=== PATIENT | female | born 1990 | race African-American/Black ===

== ENCOUNTER 2018-03-12 14:45 | Inpatient (IN) | payer OTHER ==
[2018-03-12] MEDS ORDERED: DEXTROSE 5%-LACTATED RINGERS 500 ML IV SCH ×2 (15:20→16:20)
[2018-03-12 18:17] LABS: URINE APPEARANCE CLEAR; URINE BILIRUBIN NEGATIVE (<2.0 mg/dL); URINE COLOR YELLOW; URINE GLUCOSE (UA) 3+ (NEGATIVE); URINE KETONE NEGATIVE (NEGATIVE); URINE PROTEIN NEGATIVE (NEGATIVE)
[2018-03-12 18:18] LABS: EPI CELLS RARE /HPF (FEW); URINE LEUK ESTERASE NEGATIVE (NEGATIVE); URINE MUCUS RARE; URINE NITRITE NEGATIVE (NEGATIVE)
[2018-03-12] MEDS: DEXTROSE 5%-LACTATED RINGERS 1,000 ML IV SCH (21:00)
[2018-03-12] MEDS ORDERED: PROMETHAZINE HCL 25 MG/1 ML VIAL IVPUSH ONE (21:15)
[2018-03-12] MEDS ORDERED: BUTORPHANOL TARTRATE 1 MG/ML VIAL IVPB ONE (21:15)
--- NOTE | 2018-03-12 21:16 | HP ---
Past Medical History - Admission Chief Complaint: abdominal pain/cramping History of Present Illness: 27 y/o with SIUP at 40.2 weeks here with complaints of abdominal pain. Pt also states she has had loose stools for 2 days, has been having 5 bowel movements/day. Denies LOF/VB. +FM. H/o prior delivery for failed labor induction (induced for post dates) in [place]. uncomplicated. Desires TOLAC. 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 Weeks Gestation by Dates: 40.2 ...EDC by Dates: 03/10/18 Heme/Onc: No: Anemia Infectious Disease: No: HIV, STD's Psych: No: Anxiety, Bipolar, Depression - Past Surgical History Past Surgical History: Yes: Hx Myomectomy: No Hx Transabdominal Cerclage: No - Alcohol/Substance Use History of Substance Use: reports: None - Social History ADL: Independent History of Recent Travel: No Home Medications - Allergies Allergies/Adverse Reactions: Allergies Allergy/AdvReac Type Severity Reaction Status Date / Time No Known Allergies Allergy Verified 03/12/18 15:53 - Home Medications Home Medications: Ambulatory Orders Tablet 1 tablet PO DAILY 03/12/18 Review of Systems - Review of Systems Constitutional: reports: No Symptoms Eyes: reports: No Symptoms HENT: reports: No Symptoms Neck: reports: No Symptoms Cardiovascular: reports: No Symptoms Respiratory: reports: No Symptoms Gastrointestinal: reports: Abdominal Pain, Other (loose stools X 5 today). denies: Nausea, Vomiting Genitourinary: reports: Other Breasts: reports: No Symptoms Reported Musculoskeletal: reports: No Symptoms Integumentary: reports: No Symptoms Neurological: reports: No Symptoms Endocrine: reports: No Symptoms Hematology/Lymphatic: reports: No Symptoms Psychiatric: reports: No Symptoms Physical Exam - Maternity Vital Signs: Vital Signs Temperature 97.8 F 03/12/18 18:00 Pulse Rate 85 05/28/18 20:00 Respiratory Rate 20 03/12/18 20:00 Blood Pressure 135/65 03/12/18 20:00 O2 Sat by Pulse Oximetry (%) Constitutional: Yes: Well Nourished, Mild Distress Eyes: Yes: Conjunctiva Clear, EOM Intact HENT: Yes: Atraumatic, Normocephalic Neck: Yes: Supple Lungs: Clear to auscultation - Abdominal Exam/OB Fundal Height: 40 Number of Fetuses: Single Presentation: Vertex Contractions: Yes Regularity: Regular Intensity: Mild/Mod Category: I Accelerations: Uniform Decelerations: None - Vaginal Exam/OB Dilatation (cm): 1 Effacement (%): 50 Amniotic Membrane Status: Intact Presentation: Vertex/Position Station: -2 - Physical Exam Psychiatric: Yes: Alert, Oriented Hemorrhage Risk Assessment - Risk Factors Medium Risk Factors: Yes: Prior , uterine surgery,or multiple laparotomies High Risk Factors: Yes: None Risk Score: 1 Risk Level: Medium Risk Problem List - Problems (1) Term Code(s): Z34.80 - ENCOUNTER FOR SUPRVSN OF NORMAL , UNSP TRIMESTER (2) Desires (vaginal after ) trial Code(s): O34.219 - MATERNAL CARE FOR UNSP TYPE SCAR FROM PREVIOUS DEL Assessment/Plan 27 y/o with SIUP at 40.2 weeks gestation here in early labor, for TOLAC. FHTS cat - for continuous monitoring expectant management pain management/analgesia prn GBS negative Disussed R/B/A to TOLAC with patient including but not limited to risk of uterine rupture, need for emergent delivery, possible risk of bleeding/ hysterectomy etc, pt aware and consents for TOLAC at this time continue current care
[2018-03-12 21:48] VITALS: BMI 34.0
[2018-03-12 23:16] LABS: BASO % 0.5 % (0-2.0); EOS % 0.6 % (0-4.5); HEMOGLOBIN 13.2 GM/dL (10.7-15.3); LYMPH % 20.8 % (8-40); MCH 28.9 pg (25.7-33.7); MEAN CELL VOLUME 87.6 fl (80-96); MONO % 12.5 % (3.8-10.2); NEUT % 65.6 % (42.8-82.8); PLATELET COUNT 140 K/MM3 (134-434); RBC 4.57 M/mm3 (3.60-5.2); RDW 14.2 % (11.6-15.6); WHITE BLOOD COUNT 7.7 K/mm3 (4.0-10.0)
[2018-03-12 23:29] LABS: PROTHROMBIN TIME (PATIENT) 11.3 SEC (9.7-13.0)
[2018-03-12 23:31] LABS: ACTIVATED PTT 27.7 SECONDS (26.9-34.4)
[2018-03-12 23:35] LABS: ANION GAP 10 (8-16); BLOOD UREA NITROGEN 6 mg/dL (7-18); CALCIUM 8.9 mg/dL (8.5-10.1); CHLORIDE 106 mmol/L (98-107); CO2 24 mmol/L (21-32); CREATININE 0.5 mg/dL (0.55-1.02); GLUCOSE,RANDOM 110 mg/dL (74-106); POTASSIUM 3.9 mmol/L (3.5-5.1); SODIUM 140 mmol/L (136-145)
[2018-03-13] MEDS: DEXTROSE 5%-LACTATED RINGERS 1,000 ML IV SCH (01:28)
--- NOTE | 2018-03-13 04:08 | PN ---
Ante-Partal Exam - Subjective Subjective: Pt asking for pain medication. FHR difficult to monitor 2/2 patient motion. Vital Signs: Vital Signs Temperature 98.2 F 03/13/18 02:00 Pulse Rate 70 03/13/18 02:00 Respiratory Rate 20 03/13/18 02:00 Blood Pressure 131/78 03/13/18 02:00 O2 Sat by Pulse Oximetry (%) Bleeding: No Headache: No Visual changes: No Right upper quadrant pain: No Pain (scale 1-10): 9 - Contractions Contractions: Yes Regularity: Regular Intensity: Moderate Monitor Mode: External - Exam during Labor Heart Rate: 150 Variability: Moderate Heart Rate Location: [facility] Category: I Monitor Accelerations: Present Exam: Vaginal Dilatation (cm): 3 Effacement (%): 80 Amniotic Membrane Status: Ruptured (AROM for meconium stained fluid this examination) Amniotic Fluid: Meconium Stained Meconium Staining: Moderate Presentation: Vertex Station: -2 - Intrapartum Hemorrhage Risk Medium Risk Factors: None High Risk Factors: None Risk Score: 0 Risk Level: Low Risk - Assessment/Plan Assessment/Plan: 27 y/o with SIUP at 40.3 weeks, TOLAC - FHTs appear category 1, however have been difficult to monitor, internal lead placed at this examination - will do continuous monitoring - for analgesia prn - GBS negative - continue expectant management
[2018-03-13] MEDS ORDERED: FENTANYL/BUPIVACAINE/NS/PF - PCEA - 50 ML DISP.SYRIN EP ONE ×2 (04:21→09:36)
[2018-03-13] MEDS ORDERED: NALOXONE HCL 0.4 MG/ML VIAL IVPUSH PRN (04:24)
[2018-03-13] MEDS ORDERED: BUPIVACAINE HCL/PF 0.25% (2.5MG/ML) 10 ML VIAL ONE (04:26)
[2018-03-13] MEDS ORDERED: LIDO 2%/EPI 1:200000 PRESRVFRE (20 ML SDVIAL) ONE ×2 (04:26→10:34)
[2018-03-13] MEDS ORDERED: FENTANYL/BUPIVACAINE/NS/PF - PCEA - 50 ML DISP.SYRIN EP SCH (04:30)
[2018-03-13] MEDS ORDERED: ELECTROLYTE-148 SOLN 500 ML IV ONE (04:45)
[2018-03-13] MEDS ORDERED: ELECTROLYTE-148 SOLN 1,000 ML IV SCH (05:45)
--- NOTE | 2018-03-13 07:36 | PN ---
Ante-Partal Exam - Subjective Subjective: Pt comfortable with epidural. Vital Signs: Vital Signs Temperature 98.3 F 03/13/18 06:20 Pulse Rate 84 03/13/18 07:15 Respiratory Rate 18 03/13/18 07:15 Blood Pressure 132/67 03/13/18 07:15 O2 Sat by Pulse Oximetry (%) 98 03/13/18 07:15 Bleeding: No Headache: No Visual changes: No Right upper quadrant pain: No - Contractions Contractions: Yes Regularity: Regular - Exam during Labor Heart Rate: 145 Variability: Moderate Category: I Monitor Accelerations: Present Monitor Decelerations: Variable (one isolated variable deceleration) Amniotic Membrane Status: Ruptured Presentation: Vertex - Assessment/Plan Assessment/Plan: 27 y/o with SIUP at 40.3 weeks, labor, for TOLAC - AFVSS - FHTs cat 1, one isolated variable at this time, pt position changed, will continue to monitor - GBS negative - continue expectant management
--- NOTE | 2018-03-13 09:59 | PN ---
Ante-Partal Exam - Subjective Subjective: Pt with TOLAC + meconium Vital Signs: Vital Signs Temperature 98.3 F 03/13/18 06:20 Pulse Rate 92 H 03/13/18 09:30 Respiratory Rate 17 03/13/18 09:30 Blood Pressure 120/63 03/13/18 09:30 O2 Sat by Pulse Oximetry (%) 99 03/13/18 09:30 - Contractions Contractions: Yes Regularity: Irregular - Exam during Labor Heart Rate: 140 Category: II Monitor Accelerations: Present Monitor Decelerations: Variable Exam: Vaginal Dilatation (cm): 3 Effacement (%): 80 Amniotic Membrane Status: Ruptured Amniotic Fluid: Meconium Stained Presentation: Vertex Station: -1 - Assessment/Plan Assessment/Plan: previous CS TOLAC Cat 2 - advised needs CS pt refused Plan continue present management until decides wants cs will obtain refusal consent
[2018-03-13] MEDS ORDERED: OXYTOCIN 20 UNITS in 0.9% NS 40 UNIT/2,000 ML INFUS.BAG IV ONE (10:19)
[2018-03-13] MEDS ORDERED: DEXAMETHASONE SOD PHOSPHATE 4 MG/1 ML VIAL ONE (10:29)
[2018-03-13] MEDS ORDERED: ceFAZolin SODIUM 1 GM VIAL ONE (10:29)
[2018-03-13] MEDS ORDERED: morphine SULFATE/Preservative Free 0.5 MG/ML (1cc Syringe) ONE (10:30)
[2018-03-13] MEDS ORDERED: PHENYLEPHRINE HCL 10 MG/1 ML SINGLE DOSE VIAL ONE (10:34)
[2018-03-13] MEDS ORDERED: IBUPROFEN 800 MG/8 ML IJ IVPB PRN (10:43)
[2018-03-13] MEDS ORDERED: METHYLERGONOVINE MALEATE 0.2 MG/1 ML AMP IM PRN (10:43)
--- NOTE | 2018-03-13 10:43 | OP ---
Operative Note - Note: Operative Date: 03/13/18 Pre-Operative Diagnosis: Previous Section Operation: Low transverse Section Findings: Live female infant delivered in OT position Post-Operative Diagnosis: Same as Pre-op Surgeon: Joanne Hernandez Driver Guard: Hayden Mauro Anesthesiologist/PATTERN CHART WRITER: Isabella Turner Anesthesia: Epidural Estimated Blood Loss (mls): 600 Operative Report Dictated: Yes
--- NOTE | 2018-03-13 11:44 | SURG ---
Surgery Process Development Manager Note Process Development Manager: Hayden Mauro PA-C Date of Service: 03/13/18 Diagnosis: Previous Section Procedure: Low transverse Section I was present for the entirety of the operative procedure. For further detail, please refer to operative report. Visit type - Case Type Case Type: Scheduled - New patient This patient is new to me today: Yes Date on this admission: 03/13/18
[2018-03-13 11:45] LABS: ARTERIAL BLD GAS O2 SATURATION 28.1 % (90-98.9); ARTERIAL BLOOD GAS BASE EXCESS -1.9 meq/l (-2-2); ARTERIAL BLOOD GAS PCO2 51.7 mmHg (35-45); ARTERIAL BLOOD GAS PO2 18.2 mmHg (80-100)
[2018-03-13 11:51] LABS: VENOUS PH 7.34 (7.32-7.42)
[2018-03-13 11:52] LABS: VENOUS PO2 27.2 mmHg (28-48)
--- NOTE | 2018-03-13 11:58 | OP ---
DATE OF OPERATION: 03/13/2018 PREOPERATIVE DIAGNOSIS: Previous section and failed vaginal after section. OPERATION: Low transverse section. POSTOPERATIVE DIAGNOSIS: Live female infant. SURGEON: Mis Hernandez MD FAMILY COURT REGISTRAR: CARLEEN Moss; MD unavailable. ANESTHESIOLOGIST: Isabella Turner MD ANESTHESIA: Epidural. ESTIMATED BLOOD LOSS: 600 mL FINDINGS: Live female infant delivered in OT position. Normal tubes and ovaries. PROCEDURE: Patient was taken to the operating room, placed in supine position, prepped and draped in the usual sterile fashion. A Pfannenstiel skin incision scar was removed using a scalpel. Cautery was then used to go through layers of abdominal wall to the level of the fascia. Fascia was cut in the midline, and cautery was then used to open the fascia in the following fashion. Naomi was then used to bluntly and sharply dissect the rectus muscle off the fascia. Peritoneal cavity was then entered and carried upward and downward. Bladder retractor was then placed. Scalpel was then used to make a low transverse uterine incision. Incision was carried upward using bandage scissors. A live female was delivered in OT position. Nose and mouth suction performed. Shoulders were delivered without difficulty. Cord was clamped and cut. Meconium noted. Cord blood obtained. Cord pH obtained. was handed to bank sales and service manager. Placenta was manually extracted from the uterus. Uterus was exteriorized and cleaned with clean lap pads. Uterine incision was then closed using 0 Biosyn suture, first layer of continuous 0 locking; second layer imbricating the first layer. Hemostasis was achieved. Uterus interiorized. Tubes and ovaries were noted to be normal. Peritoneal sweep done. Peritoneal cavity was then closed using 0 Biosyn suture. Fascia was then closed using 0 Vicryl suture in 2 parts. Subcutaneous was closed using 3-0 Vicryl suture, and the skin was then closed using 3-0 Vicryl in subcuticular fashion. Wound was washed and dressed. Patient had tolerated the procedure well. ESTIMATED BLOOD LOSS: 600 mL MIS HERNANDEZ M.D. GAGAN/[id number] MTDD
[2018-03-13] MEDS ORDERED: OXYTOCIN 20 UNITS in 0.9% NS 20 UNIT/1,000 ML INFUS.BAG IV ONE (13:18)
[2018-03-13] MEDS: OXYTOCIN 20 UNITS in 0.9% NS 20 UNIT/1,000 ML INFUS.BAG IV SCH ×2 (13:30→22:31)
[2018-03-13] MEDS ORDERED: TUBERCULIN PPD 5 TU/0.1ML SYRINGE (IN PATIENT USE ONLY) ID ONE (15:00)
[2018-03-14] MEDS: ACETAMINOPHEN 325 MG TABLET (FP) PO PRN ×2 (06:27→19:48)
[2018-03-14] MEDS: SIMETHICONE 80 MG TAB.CHEW (FP) PO PRN ×2 (06:27→19:48)
[2018-03-14] MEDS: IBUPROFEN 600 MG TABLET (FP) PO PRN ×2 (06:29→19:48)
--- NOTE | 2018-03-14 06:59 | PN ---
Progress Note (SOAP) - Subjective Chief Complaint: Pt doing well - Current Medications Current Medications: Active Medications Acetaminophen (Tylenol -) 650 mg PO Q4H PRN PRN Reason: PAIN LEVEL 1-5 Last Admin: 03/14/18 06:27 Dose: 650 mg Bisacodyl (Dulcolax Suppository -) 10 mg RC PRN PRN PRN Reason: CONSTIPATION Diphenhydramine HCl (Benadryl Injection -) 25 mg IVPUSH Q4H PRN PRN Reason: FOR ITCHING Last Admin: 03/14/18 01:32 Dose: 25 mg Diphtheria/Tetanus/Acell Pertussis (Boostrix -) 0.5 ml IM .ONCE ONE Stop: 03/14/18 10:01 Fentanyl/Bupivacaine/Sodium Chlor (Bupivicaine 0.125%/Fentanyl 2mcg/Ml Pcea) [address] [facility]; Protocol Last Admin: 03/13/18 05:00 Dose: 10 ml Parenteral Electrolytes (Plasma-Lyte 148 -) 1,000 mls @ 125 mls/hr IV [facility] Last Admin: 03/13/18 06:00 Dose: 125 mls/hr Oxytocin/Sodium Chloride (Normal Saline+20 Units Oxytocin -) 20 unit in 1,000 mls @ 125 mls/hr IV [facility] Last Admin: 03/13/18 22:31 Dose: 125 mls/hr Ibuprofen (Caldolor Injection -) 800 mg IVPB Q8H PRN PRN Reason: FEVER Last Admin: 03/13/18 17:23 Dose: 800 mg Ibuprofen (Motrin -) 600 mg PO Q4H PRN PRN Reason: PAIN LEVEL 1 - 3 Last Admin: 03/14/18 06:29 Dose: 600 mg Methylergonovine Maleate (Methergine Injection -) 0.2 mg IM Q4H PRN PRN Reason: Excessive Bleeding (L&D) Naloxone HCl (Narcan -) 0.4 mg IVPUSH PRN PRN PRN Reason: Sedation Oxycodone HCl (Roxicodone -) 5 mg PO Q4H PRN PRN Reason: PAIN LEVEL 4 - 6 Oxycodone HCl (Roxicodone -) 10 mg PO Q4H PRN PRN Reason: PAIN LEVEL 7 - 10 Multivit/Folic Acid/Iron ( Vitamins (Sjr) -) 1 tab PO DAILY ELANA Simethicone (Mylicon -) 80 mg PO Q4H PRN PRN Reason: GAS Last Admin: 03/14/18 06:27 Dose: 80 mg - Objective Vital Signs: Vital Signs Temperature 98 F 03/14/18 06:00 Pulse Rate 69 03/14/18 06:00 Respiratory Rate 18 03/14/18 06:00 Blood Pressure 113/56 03/14/18 06:00 O2 Sat by Pulse Oximetry (%) 100 03/13/18 12:45 Constitutional: Yes: Well Nourished, No Distress Gastrointestinal: Yes: WNL, Abdomen, Obese ....Post : Yes: Uterus firm, Uterus non-tender Musculoskeletal: Yes: WNL Extremities: Yes: WNL Peripheral Pulses WNL: No Edema: No Wound/Incision: Yes: Dressing Dry and Intact Neurological: Yes: WNL, Alert, Oriented Labs Lab Results: CBC, BMP 03/12/18 23:10 03/12/18 23:10 Problem List - Problems (1) delivery delivered Code(s): O82 - ENCOUNTER FOR DELIVERY WITHOUT INDICATION Assessment/Plan POD 1 repeat CS failed TOLAC Plan OOB pain management
--- NOTE | 2018-03-14 08:04 | PN ---
Progress Note (short form) - Note Progress Note: Anesthesia Post op/Pain Pt seen and examined S:Alert and awake comfortable O: Vital Signs Temperature 98 F 03/14/18 06:00 Pulse Rate 69 03/14/18 06:00 Respiratory Rate 18 03/14/18 06:00 Blood Pressure 113/56 03/14/18 06:00 O2 Sat by Pulse Oximetry (%) 100 03/13/18 12:45 CBC, BMP 03/12/18 23:10 03/12/18 23:10 A/P: Current Active Problems delivery delivered (Acute) Desires (vaginal after ) trial (Acute) Term (Acute) s/p c section Doing well post op Continue current care Oumar Grajeda MD
[2018-03-14 09:06] LABS: BASO % 0.4 % (0-2.0); EOS % 0.4 % (0-4.5); HEMATOCRIT 33.3 % (32.4-45.2); HEMOGLOBIN 11.1 GM/dL (10.7-15.3); LYMPH % 20.9 % (8-40); MCH 29.4 pg (25.7-33.7); MCHC 33.3 g/dl (32.0-36.0); MEAN CELL VOLUME 88.1 fl (80-96); MONO % 11.6 % (3.8-10.2); NEUT % 66.7 % (42.8-82.8); PLATELET COUNT 120 K/MM3 (134-434); RBC 3.78 M/mm3 (3.60-5.2); RDW 13.9 % (11.6-15.6); WHITE BLOOD COUNT 10.7 K/mm3 (4.0-10.0)
[2018-03-14] MEDS ORDERED: DIPHTH,PERTUSS(ACELL),TET 0.5 ML DISP.SYRIN IM ONE (10:00)
[2018-03-14] MEDS ORDERED: oxyCODONE HCL 5 MG TABLET PO PRN ×2 (10:43)
[2018-03-14] MEDS ORDERED: BISACODYL 10 MG SUPP.RECT RC PRN (10:44)
[2018-03-14] MEDS: PRENATAL VITAMINS W/ FOLIC ACID TABLET (FP) PO SCH (12:08)
--- NOTE | 2018-03-15 06:13 | PN ---
Post Progress Note Post Day: 2 Type of Delivery: Repeat C/S Vital Signs: Vital Signs Temperature 98.7 F 03/14/18 22:00 Pulse Rate 94 H 03/14/18 22:00 Respiratory Rate 18 03/14/18 22:00 Blood Pressure 106/57 03/14/18 22:00 O2 Sat by Pulse Oximetry (%) 100 03/13/18 12:45 Breast Exam: Yes: Soft Uterus: Yes: Fundus Firm, Fundus below umbilicus Incision: Yes: Dressing dry and intact Abdomen/GI: Yes: Abdomen soft, Passing flatus Lochia: Yes: Serosa Lochia, amount: Moderate Extremities: Yes: Calves non-tender Perineum: Yes: Intact Activity: Ambulating - Labs Labs: CBC WBC 10.7 K/mm3 (4.0-10.0) H D 03/14/18 08:00 RBC 3.78 M/mm3 (3.60-5.2) 03/14/18 08:00 Hgb 11.1 GM/dL (10.7-15.3) D 03/14/18 08:00 Hct 33.3 % (32.4-45.2) D 03/14/18 08:00 MCV 88.1 fl (80-96) 03/14/18 08:00 MCH 29.4 pg (25.7-33.7) 03/14/18 08:00 MCHC 33.3 g/dl (32.0-36.0) 03/14/18 08:00 RDW 13.9 % (11.6-15.6) 03/14/18 08:00 Plt Count 120 K/MM3 (134-434) L 03/14/18 08:00 MPV 10.0 fl (7.5-11.1) 03/14/18 08:00 Neutrophils % 66.7 % (42.8-82.8) 03/14/18 08:00 Lymphocytes % 20.9 % (8-40) 03/14/18 08:00 Monocytes % 11.6 % (3.8-10.2) H 03/14/18 08:00 Eosinophils % 0.4 % (0-4.5) 03/14/18 08:00 Basophils % 0.4 % (0-2.0) 03/14/18 08:00 Nucleated RBC % 0 % (0-0) 03/14/18 08:00 Assessment/Plan repeat c/s day2 condition stable continue current care
[2018-03-15] MEDS: ACETAMINOPHEN 325 MG TABLET (FP) PO PRN ×2 (08:52→19:50)
[2018-03-15] MEDS: IBUPROFEN 600 MG TABLET (FP) PO PRN ×2 (08:53→19:49)
[2018-03-15] MEDS: SIMETHICONE 80 MG TAB.CHEW (FP) PO PRN ×2 (08:54→19:49)
[2018-03-15] MEDS: PRENATAL VITAMINS W/ FOLIC ACID TABLET (FP) PO SCH (13:10)
[2018-03-16 07:32] LABS: BASO % 0.7 % (0-2.0); EOS % 2.8 % (0-4.5); HEMATOCRIT 35.6 % (32.4-45.2); MCH 29.6 pg (25.7-33.7); MCHC 33.7 g/dl (32.0-36.0); MEAN CELL VOLUME 87.9 fl (80-96); MEAN PLT VOLUME 9.2 fl (7.5-11.1); MONO % 9.1 % (3.8-10.2); NEUT % 60.4 % (42.8-82.8); PLATELET COUNT 176 K/MM3 (134-434); RBC 4.05 M/mm3 (3.60-5.2); RDW 14.3 % (11.6-15.6); WHITE BLOOD COUNT 8.3 K/mm3 (4.0-10.0)
[2018-03-16] MEDS: PRENATAL VITAMINS W/ FOLIC ACID TABLET (FP) PO SCH (09:53)
[2018-03-16] MEDS: IBUPROFEN 600 MG TABLET (FP) PO PRN (09:53)
[2018-03-16] MEDS: SIMETHICONE 80 MG TAB.CHEW (FP) PO PRN (09:53)
[2018-03-16] MEDS: ACETAMINOPHEN 325 MG TABLET (FP) PO PRN (09:54)
--- NOTE | 2018-03-16 11:29 | DS ---
Physical Exam-PHARMACY DATA ANALYST Vital Signs: Vital Signs Temperature 98.0 F 03/15/18 19:52 Pulse Rate 98 H 03/15/18 19:52 Respiratory Rate 20 03/15/18 19:52 Blood Pressure 127/79 03/15/18 19:52 O2 Sat by Pulse Oximetry (%) 100 03/13/18 12:45 Labs: CBC, BMP 03/16/18 07:17 03/12/18 23:10 Delivery - Delivery Section: Repeat, Low Flap Transverse Type of Anesthesia: Epidural EBL (cc): 600 Delivery, Single - Stages of Labor Date 1st Stage Initiatied: 03/12/18 Time 1st Stage Initiated: 21:30 Date of Delivery: 03/13/18 Time of Delivery: 11:05 Time Placenta Delivered: 11:06 - Condition of Infant Senior Consulting Manager/Passenger Locomotive Engineer Present: Yes Name: Nuvia Goyal Gender: Female Weight: 7 lb 12 oz Position: Right, OT Total Hours ROM (Hrs/Mins): 7h5m - 1 Minute Total Score: 8 5 Minutes Total Score: 9 - Feeding Plan Initial Plan: Elected not to breastfeed exclusively throughout hospitalization Discharge Summary Reason For Visit: LABOR Current Active Problems delivery delivered (Acute) Desires (vaginal after ) trial (Acute) Term (Acute) Procedures: Principal: Repeat Low Transverse Delivery Hospital Course: Pt admitted in labor, desired Trial of Labor after . After failed trial of labor the patient underwent a repeat low transverse delivery. The patient then had an uncomplicated post course and was discharged home on post op day 3. Condition: Good - Instructions Diet, Activity, Other Instructions: Physical activity Resume your normal everyday activity as tolerated no heavy lifting or strenuous exercise until seen by your surgeon. You may walk unlimited amounts and climb stairs. You may resume driving the car when you feel safe and comfortable behind the wheel. No sexual activity as instructed for 6 weeks. Wound care If there are tapes on the skin leave them in place. They will peel off in the next 7 to 10 days. Do Not Peel them off. You may shower the day after surgery. If there are tapes present on the skin, you may shower over them. Diet There are no dietary restrictions. Eat healthy, high-fiber foods. Drink 6 to 8 glasses of liquid each day. This will assist in keeping your bowels regular. Pain management You may take Tylenol or Ibuprofen (for example, Motrin, Advil etc.) for mild pain. If you need anything for severe pain, please take your prescriptions as directed. Call MD for any of the following: Severe pain not relieved by medication Fever of 101 or higher Excessive bleeding or drainage on dressing Inability to urinate Referrals: Maris Malhotra DO [Staff Physician] - 1 Week Disposition: HOME - Home Medications Comprehensive Discharge Medication List: Ambulatory Orders Tablet 1 tablet PO DAILY 03/12/18 Oxycodone HCl/Acetaminophen [Percocet 5-325 mg Tablet] 1 - 2 tab PO Q6H #20 tab MDD 6 03/15/18 Ibuprofen [Motrin -] 600 mg PO QID #28 tablet 03/16/18
[2018-03-16 12:56] VITALS: BP 110/63; PULSE 99; TEMP 98.6
--- NOTE | 2018-03-23 17:00 | PATH ---
Surgical Pathology Report Patient Name: CHRIS PAYNE Med. Rec. 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 Specimen(s) Received PLACENTA Clinical History 40.2 weeks Obese, failed , failure to dilate, nonreassuring heart rate Final Diagnosis PLACENTA, SECTION: 515 g THIRD TRIMESTER PLACENTA WITH TRIVASCULAR UMBILICAL CORD AND PLACENTAL MEMBRANES WITH MECONIUM-LADEN MACROPHAGES. Electronically Signed Katiana Martinez M.D. Gross Description The specimen is received fresh labeled placenta and is a 515 gram, 15 x 13 x 3.5 cm. placenta with attached membranes and umbilical cord. The attached membranes are mucoid with green discoloration and insert marginally. The umbilical cord measures 11 cm. in length and averages 1.2 cm. in diameter. The cord inserts eccentrically, 4 cm. to the nearest margin. No true knots or strictures are identified. Cut surface of the umbilical cord reveals 3 vessels. The surface is del rosario-blue with minimal fibrin deposition and appropriate caliber vessels. The maternal surface is red-brown with focal defects. Sectioning reveals red-brown, spongy parenchyma. No lesions are identified. Reagent Tender Helper sections are submitted in three cassettes as follows: 1- membrane rolls and umbilical cord; 2-3- full thickness sections of placenta. [facility]/03/22/2018 [facility]/03/22/2018
== END 2018-03-16 14:00 | disposition home or self-care (01) | DRG 540 ==
LOC: JDEL 14:45 → JLDR 21:00 → J3W 03-13 13:42
PROVIDERS: ADMIT Obstetrics & Gynecology; ATTEND Obstetrics & Gynecology
PROC: 10D00Z1 Extraction of Products of Conception, Low, Open Approach (ICD-10-PCS; principal; 2018-03-13)
DX: O34.211 Maternal care for low transverse scar from previous cesarean delivery (principal); O48.0 Post-term pregnancy; Z3A.40 40 weeks gestation of pregnancy; Z37.0 Single live birth
CPT/HCPCS: 36415; 36600; 80048; 81003; 81015; 82803; 85025; 85610; 85730; 86593; 86850; 86900; 86901; 87086; 88307-TC; 90715